=== PATIENT | female | born 1990 | race African-American/Black ===

== ENCOUNTER 2019-08-18 07:09 | Inpatient (IN) | payer OTHER ==
[2019-08-18 08:09] VITALS: BMI 34.4
[2019-08-18] MEDS ORDERED: ONDANSETRON 4 MG/2 ML VIAL IVPUSH PRN (08:57)
[2019-08-18] MEDS ORDERED: CITRIC ACID/SODIUM CITRATE 30 ML UNIT-DOSE CUP PO ONE (09:02)
[2019-08-18] MEDS ORDERED: OXYTOCIN 20 UNITS in 0.9% NS 20 UNIT/1,000 ML INFUS.BAG IV ONE ×2 (09:11→10:59)
[2019-08-18] MEDS ORDERED: morphine SULFATE/PF 0.5 MG/ML (2cc Syringe - QUVA) ONE (09:14)
[2019-08-18] MEDS ORDERED: ePHEDrine SULFATE 50 MG/1 ML AMPULE ONE (09:14)
[2019-08-18] MEDS ORDERED: ELECTROLYTE-148 SOLN 1,000 ML IV SCH (09:15)
--- NOTE | 2019-08-18 09:22 | HP ---
Past Medical History - Primary Care Physician PCP:: Reymundo Mckeon - Admission Chief Complaint: 28yo P2011 with at EGA 37w3d and prior IUFD admitted for repeat C/S. History of Present Illness: Prior C/S Prior IUFD at 38w6d History Source: Patient, Medical Record Limitations to Obtaining History: No Limitations - Past Medical History TELEPHONER: No: Alzheimer's, CVA, Dementia, Migraine, Multiple Sclerosis, Peripheral Neuropathy, Parkinson's, Seizure, Syncope, TIA, Vertigo, Other Cardiovascular: No: AFIB, Aneurysm, Aortic Insufficiency, Aortic Stenosis, CAD, CHF, Deep Vein Thrombosis, HTN, Hyperlipdemia, CO, Mitral Insufficiency, Mitral Stenosis, Murmur, Pulmonary Hypertension, Other Pulmonary: No: Asthma, Bronchitis, Cancer, COPD, O2 Dependent, Pneumonia, Previously Intubated, Pulmonary Embolus, Pulmonary Fibrosis, Sleep Apnea, Other Gastrointestinal: No: Ascites, Cancer, Constipation, Crohn's Disease, Diverticulitis, Diverticulosis, Esophageal Varices, Gastritis, GERD, GI Bleed, Hemorrhoids, Hiatal Hernia, Inflamatory Bowel Disease, Irritable Bowel Disease, Pancreatitis, Peptic Ulcer Disease, Ulcerative Colitis, Other Hepatobiliary: No: Cirrhosis, Cholelithiasis, Cholecystitis, Choledocholithiasis , Hepatitis A, Hepatitis B, Hepatitis C, Other Renal/: No: Renal Failure, Renal Inusuff, BPH, Cancer, Hematuria, Hemodialysis , Neurogenic Bladder, Renal Calculi, UTI, Other Reproductive: No: Ectopic , Endometriosis, Fibroids, PID, Polycystic Ovary Syndrome, Postmenopausal, Other ...: 5 ...Para: 2 ...Term: 2 ...: 0 ...Spon : 0 ...Induced : 2 ...Multiple Gestation: 0 ...LMP: 11/30/18 ... Weeks Gestation by Dates: 37.2 ...EDC by Dates: 09/06/19 ...EDC by Sono: 09/05/19 Heme/Onc: No: Anemia, B12 Deficiency, Bleeding Disorder, Cancer, Current Chemotherapy, Current Radiation Therapy, Hemochromatosis, Hypercoaguable State, Myeloproliferative Synd, Sickle Cell Disease, Sickle Cell Trait, Thrombocytopenia, Other Infectious Disease: No: AIDS, C-Diff, Herpes Zoster, HIV, MRSA, STD's, Tuberculosis, VREF, Other Psych: No: Addictions, Anxiety, Bipolar, Depression, Panic, Psychosis, Schizophrenia, Other Musculoskeletal: No: Bursitis, Chronic low back pain, Hemiparesis, Hemiplegia, Osteoarthritis, Paraplegia, Other Rheumatology: No: Fibromyalgia, Gout, Lupus, Rheumatoid Arthritis, Sarcoidosis, Vasculitis, Other ENT: No: Allergic Rhinitis, Sinusitis, Other Endocrine: No: Melvin's Disease, Shalom's Disease, Diabetes Insipidus, Diabetes Mellitus, Hyperparathyroidism, Hyperthyroidism, Hypothyroidism, Osteopenia, SIADH, Other Dermatology: No: Basal Cell, Cellulitis, Eczema, Melanoma, Psoriasis, Squamous Cell, Other - Past Surgical History Past Surgical History: Yes: Hx Myomectomy: No Hx Transabdominal Cerclage: No - Smoking History Smoking history: Never smoked Have you smoked in the past 12 months: No Aproximately how many cigarettes per day: 0 - Alcohol/Substance Use Hx Alcohol Use: No History of Substance Use: reports: None - Social History Usual Living Arrangement: Yes: With Significant Other, With Child ADL: Independent History of Recent Travel: No Home Medications - Allergies Allergies/Adverse Reactions: Allergies Allergy/AdvReac Type Severity Reaction Status Date / Time No Known Allergies Allergy Verified 02/11/16 14:24 - Home Medications Home Medications: Ambulatory Orders Vitamins 1 tab PO DAILY 02/11/16 Family Medical History Family Hx Gastrointestinal Disorder: Father Review of Systems - Review of Systems Constitutional: reports: No Symptoms Eyes: reports: No Symptoms HENT: reports: No Symptoms Neck: reports: No Symptoms Cardiovascular: reports: No Symptoms Respiratory: reports: No Symptoms Gastrointestinal: reports: No Symptoms Genitourinary: reports: No Symptoms Breasts: reports: No Symptoms Reported Musculoskeletal: reports: No Symptoms Integumentary: reports: No Symptoms Neurological: reports: No Symptoms Endocrine: reports: No Symptoms Hematology/Lymphatic: reports: No Symptoms Psychiatric: reports: No Symptoms Pain Intensity: 0 Physical Exam - Maternity Vital Signs: Vital Signs Temperature 98.4 F 08/18/19 07:50 Pulse Rate 81 08/18/19 07:50 Respiratory Rate 20 08/18/19 07:50 Blood Pressure 123/45 L 08/18/19 07:50 O2 Sat by Pulse Oximetry (%) Constitutional: Yes: Well Nourished, No Distress, Calm Eyes: Yes: WNL, Conjunctiva Clear HENT: Yes: WNL, Atraumatic, Normocephalic Neck: Yes: WNL, Supple, Trachea Midline Cardiovascular: Yes: WNL, Regular Rate and Rhythm Lungs: Clear to auscultation, Normal air movement Breast(s): Yes: WNL - Abdominal Exam/OB Fundal Height: 38 Number of Fetuses: Single Presentation: Vertex Contractions: No Heart Rate (range): 130 Heart Rate Location: Midline Category: I Accelerations: Uniform Decelerations: None - Vaginal Exam/OB Vaginal Bleediing: No Speculum Exam: No Amniotic Membrane Status: Intact Presentation: Vertex/Position - Physical Exam Musculoskeletal: Yes: WNL Extremities: Yes: WNL Edema: No Integumentary: Yes: WNL Deep Tendon Reflex Grade: Normal +2 ...Motor Strength: WNL Psychiatric: Yes: WNL, Alert, Oriented Hemorrhage Risk Assessment - Risk Factors Medium Risk Factors: Yes: Prior , uterine surgery,or multiple laparotomies High Risk Factors: Yes: None Risk Score: 1 Risk Level: Medium Risk Imaging - Results Ultrasound: Report Reviewed Assessment/Plan 28yo P2011 with at EGA 37w3d and prior IUFD admitted for repeat C/S. We discussed the risks and benefits of C/S at length, including but not limited to scarring, pain, bleeding, infection, injury to underlying organs and structures, need for additional surgery to repair/treat any problems or complications, complications/injuries, etc. The pt verbalized her understanding and requested to proceed with surgery. The pt is aware that all surgeries have risks and no guarantees can be provided.
[2019-08-18] MEDS ORDERED: ceFAZolin SODIUM 1 GM VIAL ONE (09:29)
[2019-08-18] MEDS ORDERED: WITCH HAZEL 50% (TUCKS) 40 PAD/JAR PAD TP PRN (10:26)
[2019-08-18] MEDS ORDERED: BISACODYL 10 MG SUPP.RECT RC PRN (10:26)
[2019-08-18] MEDS ORDERED: BENZOCAINE 28 GM HEMORRHOIDAL OINTMENT TP PRN (10:26)
[2019-08-18] MEDS ORDERED: BENZOCAINE 20% 57 GM BOTTLE TP PRN (10:26)
[2019-08-18] MEDS ORDERED: METHYLERGONOVINE MALEATE 0.2 MG/1 ML AMP IM PRN (10:26)
--- NOTE | 2019-08-18 10:49 | OP ---
Operative Note - Note: Operative Date: 08/18/19 Pre-Operative Diagnosis: at EGA 37w3d. Prior C/S. Prior IUFD at term Operation: Repeat LT C/S Findings: Live baby boy in vtx presentation, no meconium in amniotic fluids, 8-9, normal ut/tubes/ovaries. Post-Operative Diagnosis: Same as Pre-op Surgeon: Reymundo Mckeon Indirect Sales Exec: Flower Macias Anesthesiologist/SENIOR BENEFITS SPECIALIST: Tarik Alves Anesthesia: Spinal Specimens Removed: Placenta Estimated Blood Loss (mls): 700 Drains & Tubes with Location: Pagan cath Drains, Volume Out (mls): 350 Blood Volume Replaced (mls): 0 Fluid Volume Replaced (mls): 1,900 Operative Report Dictated: Yes
[2019-08-18] MEDS: OXYTOCIN 20 UNITS in 0.9% NS 20 UNIT/1,000 ML INFUS.BAG IV SCH (18:39)
[2019-08-19] MEDS: OXYTOCIN 20 UNITS in 0.9% NS 20 UNIT/1,000 ML INFUS.BAG IV SCH (02:14)
[2019-08-19] MEDS: ACETAMINOPHEN 325 MG TABLET (FP) PO PRN ×3 (06:28→21:17)
[2019-08-19] MEDS: IBUPROFEN 600 MG TABLET (FP) PO PRN ×3 (06:28→21:18)
[2019-08-19 08:04] LABS: BASO % 0.3 % (0-2.0); EOS % 0.6 % (0-4.5); HEMATOCRIT 31.5 % (32.4-45.2); HEMOGLOBIN 10.6 GM/dL (10.7-15.3); LYMPH % 11.1 % (8-40); MCH 31.2 pg (25.7-33.7); MCHC 33.7 g/dl (32.0-36.0); MEAN CELL VOLUME 92.8 fl (80-96); MEAN PLT VOLUME 10.1 fl (7.5-11.1); MONO % 6.4 % (3.8-10.2); NEUT % 81.6 % (42.8-82.8); PLATELET COUNT 173 K/MM3 (134-434); WHITE BLOOD COUNT 9.4 K/mm3 (4.0-10.0)
[2019-08-19] MEDS ORDERED: oxyCODONE HCL 5 MG TABLET PO PRN (08:58)
[2019-08-19] MEDS ORDERED: IBUPROFEN 600 MG TABLET (FP) PO PRN (08:58)
--- NOTE | 2019-08-19 09:10 | PN ---
Post Progress Note - Subjective Subjective: Patient without acute complaints. Reports tolerating oral intake without nausea or vomiting. Ambulating without dizziness. Denies fevers or chills. Pain well controlled with oral pain medication. Pumping/breast feeding without issue. No flatus, no BM yet. Post Day: 1 Type of Delivery: Repeat C/S Vital Signs: Vital Signs Temperature 99.0 F 08/19/19 06:00 Pulse Rate 86 08/19/19 06:00 Respiratory Rate 18 08/19/19 06:00 Blood Pressure 119/66 08/19/19 06:00 O2 Sat by Pulse Oximetry (%) 100 08/18/19 11:40 Breast Exam: Yes: Soft Uterus: Yes: Fundus Firm, Fundus below umbilicus, Non-tender Incision: Yes: Dressing dry and intact Abdomen/GI: Yes: Abdomen soft, Tolerating PO Lochia: Yes: Rubra Lochia, amount: Small Extremities: Yes: Calves non-tender Perineum: Yes: Intact Activity: Ambulating - Labs Labs: CBC WBC 9.4 K/mm3 (4.0-10.0) 08/19/19 06:40 RBC 3.40 M/mm3 (3.60-5.2) L 08/19/19 06:40 Hgb 10.6 GM/dL (10.7-15.3) L 08/19/19 06:40 Hct 31.5 % (32.4-45.2) L 08/19/19 06:40 MCV 92.8 fl (80-96) 08/19/19 06:40 MCH 31.2 pg (25.7-33.7) 08/19/19 06:40 MCHC 33.7 g/dl (32.0-36.0) 08/19/19 06:40 RDW 15.0 % (11.6-15.6) 08/19/19 06:40 Plt Count 173 K/MM3 (134-434) 08/19/19 06:40 MPV 10.1 fl (7.5-11.1) 08/19/19 06:40 Absolute Neuts (auto) 7.7 K/mm3 (1.5-8.0) 08/19/19 06:40 Neutrophils % 81.6 % (42.8-82.8) 08/19/19 06:40 Lymphocytes % 11.1 % (8-40) D 08/19/19 06:40 Monocytes % 6.4 % (3.8-10.2) 08/19/19 06:40 Eosinophils % 0.6 % (0-4.5) 08/19/19 06:40 Basophils % 0.3 % (0-2.0) 08/19/19 06:40 Nucleated RBC % 0 % (0-0) 08/19/19 06:40 Assessment/Plan 28yo P2 s/p repeat LT C/S, doing well stable, afebrile. The pt is asymptomatic for s/sxs of anemia. care instructions reviewed. Continue routine postop care. Ambulation encouraged.
[2019-08-19] MEDS: ENOXAPARIN NA (PORCINE) 40 MG/0.4 ML DISP.SYRIN SQ SCH (09:44)
[2019-08-19] MEDS: PRENATAL VITAMINS W/ FOLIC ACID TABLET (FP) PO SCH (10:05)
--- NOTE | 2019-08-19 15:14 | PN ---
Progress Note (short form) - Note Progress Note: Anesthesia Post Op Note Pt s/p spinal for c/sect Pt awake alert sitting in bed Pt denies n/v, no puritis, no h/a Pt reports ambulating well and no urinary retention good pain management VSS no apparent anesthesia complications Amparo Montejo.
[2019-08-19] MEDS ORDERED: SENNOSIDES/DOCUSATE COMBO (SENNA PLUS) TABLET (UD) PO PRN (22:00)
--- NOTE | 2019-08-20 08:48 | PN ---
Post Progress Note - Subjective Subjective: Patient without acute complaints. Reports tolerating oral intake without nausea or vomiting. Ambulating without dizziness. Denies fevers or chills. Pain well controlled with oral pain medication. without difficulty. Passing flatus. Post Day: 2 Type of Delivery: Repeat C/S Vital Signs: Vital Signs Temperature 99.8 F H 08/19/19 22:00 Pulse Rate 100 H 08/19/19 22:00 Respiratory Rate 18 08/19/19 22:00 Blood Pressure 121/70 08/19/19 22:00 O2 Sat by Pulse Oximetry (%) 100 08/18/19 11:40 Breast Exam: Yes: Soft Uterus: Yes: Fundus Firm Incision: Yes: Dressing dry and intact Abdomen/GI: Yes: Abdomen soft Lochia: Yes: Rubra Lochia, amount: Small Extremities: Yes: Calves non-tender Activity: Ambulating - Labs Labs: CBC WBC 9.4 K/mm3 (4.0-10.0) 08/19/19 06:40 RBC 3.40 M/mm3 (3.60-5.2) L 08/19/19 06:40 Hgb 10.6 GM/dL (10.7-15.3) L 08/19/19 06:40 Hct 31.5 % (32.4-45.2) L 08/19/19 06:40 MCV 92.8 fl (80-96) 08/19/19 06:40 MCH 31.2 pg (25.7-33.7) 08/19/19 06:40 MCHC 33.7 g/dl (32.0-36.0) 08/19/19 06:40 RDW 15.0 % (11.6-15.6) 08/19/19 06:40 Plt Count 173 K/MM3 (134-434) 08/19/19 06:40 MPV 10.1 fl (7.5-11.1) 08/19/19 06:40 Absolute Neuts (auto) 7.7 K/mm3 (1.5-8.0) 08/19/19 06:40 Neutrophils % 81.6 % (42.8-82.8) 08/19/19 06:40 Lymphocytes % 11.1 % (8-40) D 08/19/19 06:40 Monocytes % 6.4 % (3.8-10.2) 08/19/19 06:40 Eosinophils % 0.6 % (0-4.5) 08/19/19 06:40 Basophils % 0.3 % (0-2.0) 08/19/19 06:40 Nucleated RBC % 0 % (0-0) 08/19/19 06:40 Assessment/Plan 28yo s/p Repeat c/section POD # 2 Doing well, Afebrile VSS Rh positive no need for RhoGam Continue routine care Encourage ambulation
[2019-08-20] MEDS: ENOXAPARIN NA (PORCINE) 40 MG/0.4 ML DISP.SYRIN SQ SCH (09:32)
[2019-08-20] MEDS: PRENATAL VITAMINS W/ FOLIC ACID TABLET (FP) PO SCH (09:33)
[2019-08-20] MEDS: ACETAMINOPHEN 325 MG TABLET (FP) PO PRN (21:28)
[2019-08-20] MEDS: IBUPROFEN 600 MG TABLET (FP) PO PRN (21:29)
--- NOTE | 2019-08-21 07:38 | PN ---
Post Progress Note - Subjective Subjective: Patient without acute complaints. Reports tolerating oral intake without nausea or vomiting. Ambulating without dizziness. Denies fevers or chills. Pain well controlled with oral pain medication. without difficulty. Passing flatus. Post Day: 3 Type of Delivery: Repeat C/S Vital Signs: Vital Signs Temperature 99.1 F 08/20/19 22:00 Pulse Rate 82 08/20/19 22:00 Respiratory Rate 18 08/20/19 22:00 Blood Pressure 114/71 08/20/19 22:00 O2 Sat by Pulse Oximetry (%) 100 08/18/19 11:40 Breast Exam: Yes: Soft Uterus: Yes: Fundus Firm, Fundus below umbilicus Incision: Yes: Sutures intact. No: Redness, Oozing Abdomen/GI: Yes: Abdomen soft, Tender (mild incisional), Passing flatus, Tolerating PO. No: Abdominal Distention Lochia: Yes: Rubra Lochia, amount: Small Extremities: Yes: Calves non-tender, Edema (trace) Activity: Ambulating - Labs Labs: CBC WBC 9.4 K/mm3 (4.0-10.0) 08/19/19 06:40 RBC 3.40 M/mm3 (3.60-5.2) L 08/19/19 06:40 Hgb 10.6 GM/dL (10.7-15.3) L 08/19/19 06:40 Hct 31.5 % (32.4-45.2) L 08/19/19 06:40 MCV 92.8 fl (80-96) 08/19/19 06:40 MCH 31.2 pg (25.7-33.7) 08/19/19 06:40 MCHC 33.7 g/dl (32.0-36.0) 08/19/19 06:40 RDW 15.0 % (11.6-15.6) 08/19/19 06:40 Plt Count 173 K/MM3 (134-434) 08/19/19 06:40 MPV 10.1 fl (7.5-11.1) 08/19/19 06:40 Absolute Neuts (auto) 7.7 K/mm3 (1.5-8.0) 08/19/19 06:40 Neutrophils % 81.6 % (42.8-82.8) 08/19/19 06:40 Lymphocytes % 11.1 % (8-40) D 08/19/19 06:40 Monocytes % 6.4 % (3.8-10.2) 08/19/19 06:40 Eosinophils % 0.6 % (0-4.5) 08/19/19 06:40 Basophils % 0.3 % (0-2.0) 08/19/19 06:40 Nucleated RBC % 0 % (0-0) 08/19/19 06:40 Assessment/Plan 28 yo POD # 3 s/p repeat delivery, afebrile, vital signs stable, doing well 1. Patient stable for discharge home today. 2. Patient encouraged to contact MD for: - Severe pain not controlled by oral pain medication - Fevers or chills - Nausea or vomiting, intolerance of oral intake - Incision redness, tenderness or discharge 3. Patient to follow up in office in 1-2 weeks for incision check, 4-6 weeks for visit
[2019-08-21] MEDS: ENOXAPARIN NA (PORCINE) 40 MG/0.4 ML DISP.SYRIN SQ SCH (10:14)
[2019-08-21] MEDS: PRENATAL VITAMINS W/ FOLIC ACID TABLET (FP) PO SCH (10:14)
[2019-08-21] MEDS: IBUPROFEN 600 MG TABLET (FP) PO PRN (18:36)
[2019-08-21] MEDS: ACETAMINOPHEN 325 MG TABLET (FP) PO PRN (18:36)
[2019-08-21 23:39] VITALS: BP 122/76; PULSE 80; TEMP 98
[2019-08-22] MEDS: IBUPROFEN 600 MG TABLET (FP) PO PRN (06:19)
[2019-08-22] MEDS: ACETAMINOPHEN 325 MG TABLET (FP) PO PRN (06:20)
--- NOTE | 2019-08-27 16:28 | PATH ---
Surgical Pathology Report Patient Name: MOHINDER RANDOLPH [facility]. Rec. #: [id number] /Age/Gender: 1990 (Age: 28) / F Account: [id number] Location: [facility] OBS/CORPORATE WELLNESS COORDINATOR Taken: 08/18/2019 Received: 08/19/2019 Reported: 08/27/2019 Physicians: Reymundo Mckeon M.D. Specimen(s) Received PLACENTA Clinical History at 37 weeks 3 days Final Diagnosis PLACENTA, SECTION: 451 G THIRD TRIMESTER PLACENTA WITH TRIVASCULAR UMBILICAL CORD AND UNREMARKABLE PLACENTAL MEMBRANES. Electronically Signed Viviana Alonzo M.D. Gross Description The specimen is received fresh labeled placenta and is a 451 gram, 19.5 x 13.0 x 3.0 cm. placenta with attached membranes and umbilical cord. The attached membranes are robles, translucent with focal opacities and insert marginally. The umbilical cord measures 16 cm. in length and averages 1 cm. in diameter. The cord inserts at the margin. No true knots or strictures are identified. Cut surface of the umbilical cord reveals 3 vessels. The surface is espinoza-blue with minimal fibrin deposition and appropriate caliber vessels. The maternal surface is red-brown, markedly fragmented and disrupted. Sectioning reveals red-brown, spongy parenchyma. No lesions are identified. Boss Miner sections are submitted in three cassettes as follows: 1- membrane rolls and umbilical cord; 2-3- full thickness sections of placenta. /08/25/2019 [facility]08/25/2019
== END 2019-08-22 08:40 | disposition home or self-care (01) | DRG 540 ==
LOC: JLDR 07:09 → J3W 14:00 → UNDODISIN 08-21 10:45
PROVIDERS: ADMIT Obstetrics & Gynecology; ATTEND Obstetrics & Gynecology
PROC: 10D00Z1 Extraction of Products of Conception, Low, Open Approach (ICD-10-PCS; principal; 2019-08-18)
DX: O34.219 Maternal care for unspecified type scar from previous cesarean delivery (principal); Z3A.37 37 weeks gestation of pregnancy; Z37.0 Single live birth
CPT/HCPCS: 36415; 36600; 82803; 85025; 88307-TC

== ENCOUNTER 2019-09-29 15:55 | Inpatient (IN) | payer OTHER ==
--- NOTE | 2019-09-29 16:07 | PDOC ---
Rapid Medical Evaluation Chief Complaint: Blood Pressure Problem Time Seen by Provider: 09/29/19 16:04 Medical Evaluation: Allergies Allergy/AdvReac Type Severity Reaction Status Date / Time No Known Allergies Allergy Verified 02/11/16 14:24 09/29/19 16:04 This patient received a in-person evaluation in triage cc/HPI: elevated blood pressure with headaches. Sent ob for further evaluation. , delivered 08/18/19 PE: NAD unlabored breathing no pedal edema orders: urinalysis This patient will proceed to ED for further evaluation
[2019-09-29 16:08] VITALS: BMI 31.9
--- NOTE | 2019-09-29 16:14 | PDOC ---
History of Present Illness - General Chief Complaint: Blood Pressure Problem Stated Complaint: HYPERTENSION Time Seen by Provider: 09/29/19 16:04 History Source: Patient - History of Present Illness Timing/Duration: other Past History - Past Medical History Allergies/Adverse Reactions: Allergies Allergy/AdvReac Type Severity Reaction Status Date / Time No Known Allergies Allergy Verified 09/29/19 17:22 Home Medications: Ambulatory Orders NK [No Known Home Medication] 09/29/19 Asthma: No Cancer: No Cardiac Disorders: No COPD: No Diabetes: No HTN: No Seizures: No Thyroid Disease: No - Immunization History Immunization Up to Date: Yes - Psycho Social/Smoking Cessation Hx Smoking Status: No Smoking History: Never smoked Have you smoked in the past 12 months: No Number of Cigarettes Smoked Daily: 0 Hx Alcohol Use: No Drug/Substance Use Hx: No Substance Use Type: None Hx Substance Use Treatment: No Review of Systems - Review of Systems Constitutional: No: Chills, Fever Respiratory: No: Shortness of Breath Cardiac (ROS): No: Chest Pain, Lightheadedness, Palpitations ABD/GI: No: Nausea, Vomiting, Abdominal cramping : No: Dysuria, Hematuria Neurological: Yes: Headache. No: Numbness, Seizure, Tingling, Weakness, Dizziness *Physical Exam - Vital Signs Last Vital Signs Temp Pulse Resp BP Pulse Ox 97 F L 59 L 17 149/76 98 09/29/19 16:05 09/29/19 16:05 09/29/19 16:05 09/29/19 16:05 09/29/19 16:05 - Physical Exam General Appearance: Yes: Appropriately Dressed. No: Apparent Distress HEENT: positive: Normal Voice Neck: positive: Supple Respiratory/Chest: positive: Lungs Clear, Normal Breath Sounds. negative: Respiratory Distress Cardiovascular: positive: Regular Rate, S1, S2 Gastrointestinal/Abdominal: positive: Soft. negative: Tender Musculoskeletal: negative: CVA Tenderness Integumentary: positive: Dry, Warm Neurologic: positive: Fully Oriented, Alert, Normal Mood/Affect, Motor Strength 5/5 ED Treatment Course - LABORATORY CBC & Chemistry Diagram: 09/29/19 17:05 09/29/19 17:00 Medical Decision Making - Medical Decision Making 09/29/19 16:14 28-year-old female, no sig pmhx, , s/p over a month ago at [facility] with Dr. Mckeon, seen at post-op visit today and found to have elevated BP in office and sent to ED to rule out pre-eclampsia. Patient states she had vague headache 2 days ago that has since resolved. Currently only has mild bodyaches. No dizziness, blurry vision, seizure, nausea, vomiting, LE swelling, abd pain, CP, SOB, vaginal bleed, dysuria, fever or chills. Per patient, had no complications during and no history of pre-eclampsia or HTN see exam Concern for pre-eclampsia BP at triage 149/76, well emmett w/ unremarkable exam otherwise -labs/ua -c/w [facility] 09/29/19 17:33 BP now 180/108 at bedside. Patient reports headache has since returned. ED attending called to bedside. Mag sulfate and IV fluids in progress. Dr. Mckeon of [facility] paged 09/29/19 17:[address] Mckeon of [facility] who recommends dose of hydralazine for BP control and can switch to procardia for further management. At this time mag sulfate loading dose is in progress, then will start infusion w/ continued reassessment for magnesium toxicity by checking DTRs and mag level every 1-2 hours as discussed with Dr. Aldridge. As discussed with Dr. Mckeon, will consult with hardware manager 09/29/19 18:[address] Alva from ICU who state he will come down to ER to evaluate patient. Information also micro-blogged to MD and hospitalist as requested 09/29/19 18:[address] Moreno who agrees with ICU admission. 09/29/19 18:47 Repeat blood pressure 143/92. Per discussion with Dr Aldridge, will hold hydralazine at this time. Mag currently in progress 09/29/19 19:00 Pt signed out to CHARMAINE Hannah pending continued assessment while on mag infusion Discharge - Discharge Information Problems reviewed: Yes Clinical Impression/Diagnosis: Elevated blood pressure reading Headache Qualifiers: Headache type: unspecified Headache chronicity pattern: acute headache Intractability: not intractable Qualified Code(s): R51 - Headache Condition: Fair - Admission Yes - Follow up/Referral - Patient Discharge Instructions - Post Discharge Activity
[2019-09-29 16:54] LABS: URINE APPEARANCE CLEAR; URINE BILIRUBIN NEGATIVE (NEGATIVE); URINE COLOR YELLOW; URINE GLUCOSE (UA) NEGATIVE (NEGATIVE); URINE KETONE NEGATIVE (NEGATIVE); URINE LEUK ESTERASE NEGATIVE (NEGATIVE); URINE NITRITE NEGATIVE (NEGATIVE); URINE PROTEIN NEGATIVE (NEGATIVE); URINE UROBILINOGEN 0.2 mg/dL (0.2-1.0)
[2019-09-29 17:16] LABS: BASO % 0.8 % (0-2.0); EOS % 3.2 % (0-4.5); HEMATOCRIT 39.2 % (32.4-45.2); HEMOGLOBIN 13.1 GM/dL (10.7-15.3); LYMPH % 35.8 % (8-40); MCHC 33.4 g/dl (32.0-36.0); MEAN CELL VOLUME 89.8 fl (80-96); MONO % 5.5 % (3.8-10.2); NEUT % 54.7 % (42.8-82.8); PLATELET COUNT 178 K/MM3 (134-434); RBC 4.36 M/mm3 (3.60-5.2); RDW 15.2 % (11.6-15.6); WHITE BLOOD COUNT 3.9 K/mm3 (4.0-10.0)
[2019-09-29] MEDS ORDERED: SODIUM CHLORIDE 1,000 ML IV STA (17:30)
[2019-09-29] MEDS ORDERED: MAGNESIUM SULF 50% (8.12 MEQ/2 ML-1 GM VIAL) IVPB ONE (17:31)
[2019-09-29] MEDS ORDERED: MAGNESIUM SULF 50% (8.12 MEQ/2 ML-1 GM VIAL) ONE (17:39)
[2019-09-29 17:45] LABS: ALBUMIN 3.4 g/dl (3.4-5.0); ALK PHOS 80 U/L (45-117); ANION GAP 6 MMOL/L (8-16); BILIRUBIN,TOTAL 0.2 mg/dL (0.2-1); BLOOD UREA NITROGEN 12.8 mg/dL (7-18); CALCIUM 8.9 mg/dL (8.5-10.1); CHLORIDE 107 mmol/L (98-107); CO2 30 mmol/L (21-32); CREATININE 0.9 mg/dL (0.55-1.3); GLUCOSE,RANDOM 90 mg/dL (74-106); POTASSIUM 3.9 mmol/L (3.5-5.1); SGOT/AST 11 U/L (15-37); SGPT/ALT 19 U/L (13-61); SODIUM 143 mmol/L (136-145); TOT PROT 7.1 g/dl (6.4-8.2)
[2019-09-29] MEDS ORDERED: SODIUM CHLORIDE 1,000 ML IV SCH (17:45)
[2019-09-29] MEDS ORDERED: hydrALAZINE HCL 20 MG/ML VIAL IVPUSH ONE (17:50)
--- NOTE | 2019-09-29 18:02 | PDOC ---
Attending Attestation - Resident Resident Name: Chilean,LindaGregory - HPI HPI: 09/29/19 17:55 Pt presents to the ED after sent in from primary OB for headache and hypertension. Complaining of "throbbing" headache in the ED. BP 180/100s. No history of HTN during or pre-ecclampsia. Denies swelling or visual complaints. - Physicial Exam PE: 09/29/19 17:57 Agree with resident exam. Patient is alert and oriented x 3 and in no acute distress. Lungs are clear. Heart regular rate and rhythm. Abdomen soft, non tender, non distended without guarding or rebound. - Critical Care Time Total Critical Care Time: 30 Critical Care Statement: The care of this patient involved high complexity decision making to prevent further life threatening deterioration of the patient 's condition and/or to evaluate & treat vital organ system(s) failure or risk of failure. - Medical Decision Making 09/29/19 18:02 Pt presents to the ED complaining of headache and high blood pressure in [facility] office. patient is extremely hypertensive in ED. Case discussed with Dr. Mckeon. Will start large dose mag and IV hydralizine, admit to ICU for continued monitoring.
[2019-09-29] MEDS ORDERED: hydrALAZINE HCL 20 MG/ML VIAL ONE (18:15)
[2019-09-29] MEDS ORDERED: ACETAMINOPHEN 325 MG TABLET (FP) PO PRN (18:42)
--- NOTE | 2019-09-29 18:44 | HP ---
Admitting History and Physical - Primary Care Physician PCP: Katherine Moreno - Admission History of Present Illness: 28-year-old female, no sig pmhx, , s/p over a month ago at [facility] with Dr. Mckeon, seen at post-op visit today and found to have elevated BP in office and sent to ED to rule out pre-eclampsia. Patient states she had vague headache 2 days ago that has since resolved. Currently only has mild bodyaches. No dizziness, blurry vision, seizure, nausea, vomiting, LE swelling, abd pain, CP, SOB, vaginal bleed, dysuria, fever or chills. Per patient, had no complications during and no history of pre-eclampsia or HTN - Past Surgical History Past Surgical History: Yes: - Smoking History Smoking history: Never smoked Have you smoked in the past 12 months: No Aproximately how many cigarettes per day: 0 - Alcohol/Substance Use Hx Alcohol Use: No History of Substance Use: reports: None - Social History ADL: Independent History of Recent Travel: No Home Medications - Allergies Allergies/Adverse Reactions: Allergies Allergy/AdvReac Type Severity Reaction Status Date / Time No Known Allergies Allergy Verified 09/29/19 17:22 - Home Medications Home Medications: Ambulatory Orders Amlodipine Besylate [Norvasc -] 5 mg PO DAILY #30 tablet 09/30/19 Physical Examination Vital Signs: Vital Signs Temperature 97.8 F 09/29/19 16:45 Pulse Rate 60 09/29/19 18:00 Respiratory Rate 18 09/29/19 18:00 Blood Pressure 179/96 H 09/29/19 18:00 O2 Sat by Pulse Oximetry (%) 100 09/29/19 18:00 Constitutional: Yes: No Distress HENT: Yes: Atraumatic Neck: Yes: Supple Cardiovascular: Yes: Bruit Respiratory: Yes: CTA Bilaterally Gastrointestinal: Yes: Normal Bowel Sounds Extremities: Yes: WNL Edema: No Neurological: Yes: Alert, Oriented Labs: CBC, BMP 09/29/19 17:05 09/29/19 17:00 Problem List - Problems (1) Headache Code(s): R51 - HEADACHE Qualifiers: Headache type: unspecified Headache chronicity pattern: acute headache Intractability: not intractable Qualified Code(s): R51 - Headache (2) S/P repeat low transverse Code(s): Z98.891 - HISTORY OF UTERINE SCAR FROM PREVIOUS SURGERY (3) HTN (hypertension) Code(s): I10 - ESSENTIAL (PRIMARY) HYPERTENSION Assessment/Plan Laboratory Tests 09/29/19 09/29/19 09/29/19 16:29 17:00 17:05 WBC 3.9 L RBC 4.36 Hgb 13.1 Hct 39.2 D MCV 89.8 MCH 30.0 MCHC 33.4 RDW 15.2 Plt Count 178 MPV 10.0 Absolute Neuts (auto) 2.1 Neutrophils % 54.7 D Lymphocytes % 35.8 D Monocytes % 5.5 Eosinophils % 3.2 D Basophils % 0.8 Nucleated RBC % 0 Sodium 143 Potassium 3.9 Chloride 107 Carbon Dioxide 30 Anion Gap 6 L BUN 12.8 Creatinine 0.9 Est GFR (CKD-EPI)AfAm 100.14 Est GFR (CKD-EPI)NonAf 86.41 Random Glucose 90 Calcium 8.9 Total Bilirubin 0.2 AST 11 L ALT 19 Alkaline Phosphatase 80 Total Protein 7.1 Albumin 3.4 Urine Color Yellow Urine Appearance Clear Urine pH 8.0 D Ur Specific Gifford 1.014 Urine Protein Negative Urine Glucose (UA) Negative Urine Ketones Negative Urine Blood Negative Urine Nitrite Negative Urine Bilirubin Negative Urine Urobilinogen 0.2 Ur Leukocyte Esterase Negative Active Medications Generic Name Dose Route Start Last Admin Trade Name Freq PRN Reason Stop Dose Admin Acetaminophen 650 mg 09/29/19 18:42 Tylenol - PO Q6H PRN FEVER Heparin Sodium (Porcine) 5,000 unit 09/29/19 22:00 Heparin - SQ BID CHARLES Sodium Chloride 1,000 mls @ 80 mls/hr 09/29/19 17:45 09/29/19 18:11 Normal Saline - IV 80 mls/hr ASDIR CHARLES Administration
[2019-09-29] MEDS ORDERED: METOCLOPRAMIDE HCL INJECTION 10 MG/2 ML VIAL IVPB ONE (18:47)
[2019-09-29] MEDS ORDERED: METOCLOPRAMIDE HCL INJECTION 10 MG/2 ML VIAL ONE (19:13)
--- NOTE | 2019-09-29 19:42 | CONSULT ---
Consultation: REQUESTING PROVIDER: CONSULT REQUEST: We have been asked to medically evaluate this patient for hypertensive emergency . HISTORY OF PRESENT ILLNESS: 28y/oF 6 weeks s/p , presented to the ER with headache and blood pressure of 180/108 in PCP's office. She has had 2 days of intermittent headache 10/10 and throbbing in nature. Headache currently at 5/ 10 at time of evalutation.located at the front of her head and sometimes in the back. sometimes relieved by rest/sleep. denied any exacerbating factors. She denies any blurry vision, nausea, vomiting, fevers, chills, neck stiffness, previous hx of hypertension during or before , dysuria, hematuria. ER course -BP on arrival was 149/76 when triaged -given MgSO4 and 10mg IV dose of hydralazine -IV fluids (normal saline 1L) - IV reglan for headache -BP at time of this eval. 133/88 PSH x2 PMH: no significant past medical hx FHx: mother has diabetes Medications: none Social Hx: denies smoking,drug use. occasional drinker Allergies: NKDA PCP: Dr. Pitts OB: Dr. Mckeon REVIEW OF SYSTEMS: CONSTITUTIONAL: Absent: fever, chills, diaphoresis, generalized weakness, malaise, loss of appetite, weight change HEENT: Absent: rhinorrhea, nasal congestion, throat pain, throat swelling, difficulty swallowing, mouth swelling, ear pain, eye pain, visual changes CARDIOVASCULAR: Absent: chest pain, syncope, palpitations, irregular heart rate, lightheadedness , peripheral edema RESPIRATORY: Absent: cough, shortness of breath, dyspnea with exertion, orthopnea, wheezing, stridor, hemoptysis GASTROINTESTINAL: Absent: abdominal pain, abdominal distension, nausea, vomiting, diarrhea, constipation, melena, present: BRBPR x 1 today. no other events on subsequent bowel movements. hx of hemorrhoids GENITOURINARY: Absent: dysuria, frequency, urgency, hesitancy, hematuria, flank pain, genital pain MUSCULOSKELETAL: Absent: myalgia, arthralgia, joint swelling, back pain, neck pain SKIN: Absent: rash, itching, pallor HEMATOLOGIC/IMMUNOLOGIC: Absent: easy bleeding, easy bruising, lymphadenopathy, frequent infections ENDOCRINE: Absent: unexplained weight gain, unexplained weight loss, heat intolerance, cold intolerance NEUROLOGIC: Absent: headache, focal weakness or paresthesias, dizziness, unsteady gait, seizure, mental status changes, bladder or bowel incontinence PSYCHIATRIC: Absent: anxiety, depression, suicidal or homicidal ideation, hallucinations. PHYSICAL EXAMINATION Vital Signs - 24 hr 09/29/19 09/29/19 09/29/19 16:05 16:45 17:00 Temperature 97 F L 97.8 F Pulse Rate 59 L Pulse Rate [ 51 L Apical] Respiratory 17 16 Rate Blood Pressure 149/76 Blood Pressure 180/111 H [Left Arm] O2 Sat by Pulse 98 100 100 Oximetry (%) 09/29/19 09/29/19 09/29/19 18:00 18:30 19:07 Temperature Pulse Rate Pulse Rate [ 60 60 70 Apical] Respiratory 18 116 H 18 Rate Blood Pressure Blood Pressure 179/96 H 143/92 133/88 [Left Arm] O2 Sat by Pulse 100 100 100 Oximetry (%) GENERAL: Awake, alert, and fully oriented, in no acute distress. HEAD: Normal with no signs of trauma. EYES: Pupils equal, round and reactive to light, extraocular movements intact, sclera anicteric, conjunctiva clear. No lid lag. EARS, NOSE, THROAT: Ears normal, nares patent, oropharynx clear without exudates. Moist mucous membranes. NECK: Normal range of motion, supple without lymphadenopathy, JVD, or masses. LUNGS: Breath sounds equal, clear to auscultation bilaterally. No wheezes, and no crackles. No accessory muscle use. HEART: Regular rate and rhythm, normal S1 and S2 without murmur, rub or gallop. ABDOMEN: Soft, nontender, not distended, normoactive bowel sounds, no guarding, no rebound, no masses. No hepatomegaly or splenomegaly. MUSCULOSKELETAL: Normal range of motion at all joints. No bony deformities or tenderness. No CVA tenderness. UPPER EXTREMITIES: 2+ pulses, warm, well-perfused. No cyanosis. No clubbing. Cap refill <2 seconds. No peripheral edema. LOWER EXTREMITIES: 2+ pulses, warm, well-perfused. No calf tenderness. No peripheral edema. NEUROLOGICAL: Cranial nerves II-XII intact. Normal speech. PSYCHIATRIC: Cooperative. Good eye contact. Appropriate mood and affect. SKIN: Warm, dry, normal turgor, no rashes or lesions noted. Laboratory Results - last 24 hr 09/29/19 09/29/19 09/29/19 16:29 17:00 17:05 WBC 3.9 L RBC 4.36 Hgb 13.1 Hct 39.2 D MCV 89.8 MCH 30.0 MCHC 33.4 RDW 15.2 Plt Count 178 MPV 10.0 Absolute Neuts (auto) 2.1 Neutrophils % 54.7 D Lymphocytes % 35.8 D Monocytes % 5.5 Eosinophils % 3.2 D Basophils % 0.8 Nucleated RBC % 0 Sodium 143 Potassium 3.9 Chloride 107 Carbon Dioxide 30 Anion Gap 6 L BUN 12.8 Creatinine 0.9 Est GFR (CKD-EPI)AfAm 100.14 Est GFR (CKD-EPI)NonAf 86.41 Random Glucose 90 Calcium 8.9 Total Bilirubin 0.2 AST 11 L ALT 19 Alkaline Phosphatase 80 Total Protein 7.1 Albumin 3.4 Urine Color Yellow Urine Appearance Clear Urine pH 8.0 D Ur Specific [place] 1.014 Urine Protein Negative Urine Glucose (UA) Negative Urine Ketones Negative Urine Blood Negative Urine Nitrite Negative Urine Bilirubin Negative Urine Urobilinogen 0.2 Ur Leukocyte Esterase Negative Active Medications Generic Name Dose Route Start Last Admin Trade Name Freq PRN Reason Stop Dose Admin Acetaminophen 650 mg 09/29/19 18:42 Tylenol - PO Q6H PRN FEVER Chlorhexidine Gluconate 1 applic 09/29/19 22:00 Hibiclens For Decolonization - TP HS CHARLES Heparin Sodium (Porcine) 5,000 unit 09/29/19 22:00 Heparin - SQ BID CHARLES Sodium Chloride 1,000 mls @ 80 mls/hr 09/29/19 17:45 09/29/19 18:11 Normal Saline - IV 80 mls/hr ASDIR CHARLES Administration Mupirocin 1 applic 09/29/19 22:00 Bactroban Ointment (For Decolonization) - NS 10/04/19 21:59 BID CHARLES ASSESSMENT/PLAN: 28/yo F s/p 6 weeks ago with hypertensive urgency 1 dose of hydralazine and 1 dose mgso4 received in the ED Blood pressure controlled at this time Pain medications (Iv tylenol were administered) no need for ICU Pt will be admitted to the floor and monitored on telemetry as per Dr. Josh hern[facility]dez [facility] [place] 5mg PO Dispo: Thank you for this consultative opportunity. Visit type - Emergency Visit Emergency Visit: Yes ED Registration Date: 09/29/19 Care time: The patient presented to the Emergency Department on the above date and was hospitalized for further evaluation of their emergent condition. - New Patient This patient is new to me today: Yes Date on this admission: 09/30/19 - Critical Care Critical Care patient: No ATTENDING PHYSICIAN STATEMENT I saw and evaluated the patient. I reviewed the resident's note and discussed the case with the resident. I agree with the resident's findings and plan as documented. SUBJECTIVE: OBJECTIVE: ASSESSMENT AND PLAN:
--- NOTE | 2019-09-29 19:43 | PDOC ---
*Physical Exam - Vital Signs Last Vital Signs Temp Pulse Resp BP Pulse Ox 97.8 F 70 18 133/88 100 09/29/19 16:45 09/29/19 19:07 09/29/19 19:07 09/29/19 19:07 09/29/19 19:07 Heart Score/ECG Review - History History: Slightly suspicious - Electrocardiogram EKG: Normal - Age Age: </= 45 - Risk Factors Based on the list above the patient has:: 1-2 risk factors - ECG Intrepretation Rhythm: Regular Rhythm Comment:: 09/29/19 19:45 NSR 71 bpm ED Treatment Course - LABORATORY CBC & Chemistry Diagram: 09/29/19 17:05 09/29/19 17:00 - ADDITIONAL ORDERS Additional order review: Laboratory Results 09/29/19 09/29/19 17:00 16:29 Sodium 143 Potassium 3.9 Chloride 107 Carbon Dioxide 30 Anion Gap 6 L BUN 12.8 Creatinine 0.9 Est GFR (CKD-EPI)AfAm 100.14 Est GFR (CKD-EPI)NonAf 86.41 Random Glucose 90 Calcium 8.9 Total Bilirubin 0.2 AST 11 L ALT 19 Alkaline Phosphatase 80 Total Protein 7.1 Albumin 3.4 Urine Color Yellow Urine Appearance Clear Urine pH 8.0 D Ur Specific [place] 1.014 Urine Protein Negative Urine Glucose (UA) Negative Urine Ketones Negative Urine Blood Negative Urine Nitrite Negative Urine Bilirubin Negative Urine Urobilinogen 0.2 Ur Leukocyte Esterase Negative 09/29/19 17:05 RBC 4.36 MCV 89.8 MCHC 33.4 RDW 15.2 MPV 10.0 Neutrophils % 54.7 D Lymphocytes % 35.8 D Monocytes % 5.5 Eosinophils % 3.2 D Basophils % 0.8 - Medications Given in the ED: ED Medications Discontinued Medications Generic Name Dose Route Start Last Admin Trade Name Freq PRN Reason Stop Dose Admin Hydralazine HCl 10 mg 09/29/19 17:50 09/29/19 18:50 Apresoline Injection - IVPUSH 09/29/19 17:51 Not Given ONCE ONE Sodium Chloride 1,000 mls @ 1,000 mls/hr 09/29/19 17:30 09/29/19 17:35 Normal Saline - IV 09/29/19 18:29 1,000 mls/hr ASDIR STA Administration Magnesium Sulfate 6 gm 09/29/19 17:31 09/29/19 18:00 Magnesium Sulfate IVPB 09/29/19 17:32 6 gm ONCE ONE Administration Metoclopramide HCl 10 mg 09/29/19 18:47 09/29/19 19:19 Reglan Injection - IVPB 09/29/19 18:48 10 mg ONCE ONE Administration Medical Decision Making - Medical Decision Making 09/29/19 19:42 b/p 132/80. magnesium drip discontinued. spoke to ICU resident patient downgraded to tele 09/29/19 19:43 Discharge - Discharge Information Problems reviewed: Yes Clinical Impression/Diagnosis: Elevated blood pressure reading Headache Qualifiers: Headache type: unspecified Headache chronicity pattern: acute headache Intractability: not intractable Qualified Code(s): R51 - Headache Condition: Fair - Admission Yes - Follow up/Referral - Patient Discharge Instructions - Post Discharge Activity
[2019-09-29 20:43] LABS: N-TERMINAL BNP 119.2 pg/ml (5-125)
[2019-09-29] MEDS ORDERED: MUPIROCIN 2% TOPICAL OINTMENT FOR DECOLONIZATION NS SCH (22:00)
[2019-09-29] MEDS ORDERED: CHLORHEXIDINE GLUCONATE 4% CLEANSER FOR DECOLONIZATION TP SCH (22:00)
[2019-09-29] MEDS ORDERED: HEPARIN NA (PORCINE) 5,000 UNITS/ML 1ML VIAL ONE (22:44)
[2019-09-29] MEDS: HEPARIN NA (PORCINE) 5,000 UNITS/ML 1ML VIAL SQ SCH (22:50)
[2019-09-30] MEDS ORDERED: ACETAMINOPHEN 325 MG TABLET (FP) ONE (05:48)
[2019-09-30 07:13] LABS: BASO % 0.6 % (0-2.0); EOS % 2.9 % (0-4.5); HEMATOCRIT 36.7 % (32.4-45.2); HEMOGLOBIN 12.2 GM/dL (10.7-15.3); LYMPH % 34.1 % (8-40); MCH 30.1 pg (25.7-33.7); MCHC 33.3 g/dl (32.0-36.0); MEAN CELL VOLUME 90.3 fl (80-96); MEAN PLT VOLUME 10.7 fl (7.5-11.1); MONO % 5.5 % (3.8-10.2); NEUT % 56.9 % (42.8-82.8); PLATELET COUNT 171 K/MM3 (134-434); RBC 4.07 M/mm3 (3.60-5.2); RDW 14.9 % (11.6-15.6); WHITE BLOOD COUNT 4.1 K/mm3 (4.0-10.0)
[2019-09-30 07:27] LABS: INR 1.03 (0.83-1.09); PROTHROMBIN TIME (PATIENT) 12.1 SEC (9.7-13.0)
[2019-09-30 07:55] LABS: ALBUMIN 3.1 g/dl (3.4-5.0); BILIRUBIN,TOTAL 0.3 mg/dL (0.2-1); BLOOD UREA NITROGEN 10.1 mg/dL (7-18); CALCIUM 8.4 mg/dL (8.5-10.1); CREATININE 0.8 mg/dL (0.55-1.3); MAGNESIUM 2.8 mg/dL (1.8-2.4); PHOSPHOROUS 3.3 mg/dL (2.5-4.9); TOT PROT 6.4 g/dl (6.4-8.2)
--- NOTE | 2019-09-30 09:45 | EKG ---
Test Reason : Blood Pressure : / mmHG Vent. Rate : 071 BPM Atrial Rate : 071 BPM P-R Int : 186 ms QRS Dur : 092 ms QT Int : 420 ms P-R-T Axes : 072 020 020 degrees QTc Int : 456 ms NORMAL SINUS RHYTHM WITH SINUS ARRHYTHMIA NORMAL ECG WHEN COMPARED WITH ECG OF 29-OCT-2010 19:15, QT HAS LENGTHENED Confirmed by MD Mendoza, Catalino ([id number]) on 09/30/2019 9:44:52 AM Referred By: Confirmed By:Catalino Donaldson MD
[2019-09-30] MEDS ORDERED: amLODIPine BESYLATE 5 MG TABLET (FP) PO SCH (10:00)
[2019-09-30] MEDS ORDERED: amLODIPine BESYLATE 5 MG TABLET (FP) ONE (10:25)
[2019-09-30] MEDS ORDERED: HEPARIN NA (PORCINE) 5,000 UNITS/ML 1ML VIAL ONE (10:25)
[2019-09-30] MEDS: HEPARIN NA (PORCINE) 5,000 UNITS/ML 1ML VIAL SQ SCH (10:31)
--- NOTE | 2019-09-30 12:29 | EKG ---
Test Reason : Blood Pressure : / mmHG Vent. Rate : 049 BPM Atrial Rate : 049 BPM P-R Int : 174 ms QRS Dur : 088 ms QT Int : 480 ms P-R-T Axes : 030 034 015 degrees QTc Int : 433 ms SINUS BRADYCARDIA ABNORMAL ECG WHEN COMPARED WITH ECG OF 29-SEP-2019 19:22, NO SIGNIFICANT CHANGE WAS FOUND Confirmed by MD Mervin, Quinn ([id number]) on 09/30/2019 12:29:39 PM Referred By: Grecia JOHNSON Confirmed By:Quinn Jeffries MD
[2019-09-30 14:34] VITALS: TEMP 97.9
--- NOTE | 2019-09-30 15:51 | DS ---
Physical Examination Vital Signs: Vital Signs Temperature 97.9 F 09/30/19 14:00 Pulse Rate 65 09/30/19 14:00 Respiratory Rate 18 09/30/19 14:00 Blood Pressure 129/79 09/30/19 14:00 O2 Sat by Pulse Oximetry (%) 100 09/30/19 14:00 Constitutional: Yes: No Distress HENT: Yes: Atraumatic Neck: Yes: Supple Cardiovascular: Yes: Regular Rate and Rhythm Respiratory: Yes: CTA Bilaterally Gastrointestinal: Yes: Normal Bowel Sounds Extremities: Yes: WNL Neurological: Yes: Alert, Oriented Labs: CBC, BMP 09/30/19 06:10 09/30/19 06:10 Discharge Summary Problems reviewed: Yes Reason For Visit: HYPERTENSIVE EMERGENCY Current Active Problems Elevated blood pressure reading (Acute) Headache (Acute) Condition: Stable - Instructions Diet, Activity, Other Instructions: see your doctor 2-3 days monitor bp daily Referrals: Benito Pitts MD [Primary Care Provider] - Ronald Isaac MD [Staff Physician] - Disposition: HOME - Home Medications Comprehensive Discharge Medication List: Ambulatory Orders Amlodipine Besylate [Norvasc -] 5 mg PO DAILY #30 tablet 09/30/19 dc home fu pmd /cardiology 2-3 days for bp
--- NOTE | 2019-09-30 17:11 | CON.CARD ---
Consult Consult Specialty:: Cardiology Referred by:: Dr. Moreno Reason for Consultation:: Cardiac evaluation - History of Present Illness Chief Complaint: Hypertensive urgency History of Present Illness: Patient is a 28 year old female with no significant PMH except recent C section (uneventful without history of pre-eclampsia) now admitted to ED with elevated BP. She complained of headache for past 2 days. She denies chest pain, shortness of breath or palpitations. She denies paroxysmal nocturnal dyspnea or orthopnea. She denies fever or chills. She denies nausea, vomiting, diarrhea or abdominal pain. She denies dizziness at this time. She denies seizure or syncope. - Past Surgical History Past Surgical History: Yes: - Alcohol/Substance Use Hx Alcohol Use: No History of Substance Use: reports: None - Smoking History Smoking history: Never smoked Have you smoked in the past 12 months: No Aproximately how many cigarettes per day: 0 - Social History ADL: Independent History of Recent Travel: No Home Medications - Allergies Allergies/Adverse Reactions: Allergies Allergy/AdvReac Type Severity Reaction Status Date / Time No Known Allergies Allergy Verified 09/29/19 17:22 - Home Medications Home Medications: Ambulatory Orders Amlodipine Besylate [Norvasc -] 5 mg PO DAILY #30 tablet 09/30/19 Family Medical History Family History: Denies Review of Systems - Review of Systems Constitutional: denies: Chills, Fever Cardiovascular: denies: Chest Pain, Palpitations, Shortness of Breath Respiratory: denies: Cough, Hemoptysis, Orthopnea, PND, SOB, SOB on Exertion Gastrointestinal: denies: Abdominal Pain, Constipation, Diarrhea, Melena, Nausea , Rectal Bleeding, Vomiting Genitourinary: denies: Dysuria, Hematuria Musculoskeletal: denies: Back Pain, Joint Pain Neurological: denies: Dizziness, Headache, Seizure, Syncope Vital Signs: Vital Signs Temperature 97.9 F 09/30/19 14:00 Pulse Rate 65 09/30/19 14:00 Respiratory Rate 18 09/30/19 14:00 Blood Pressure 129/79 09/30/19 14:00 O2 Sat by Pulse Oximetry (%) 100 09/30/19 14:00 Eyes: Yes: PERRL HENT: Yes: Atraumatic Neck: Yes: Supple Respiratory: Yes: CTA Bilaterally Gastrointestinal: Yes: Normal Bowel Sounds, Soft. No: Tenderness Cardiovascular: Yes: Regular Rate and Rhythm JVD: No Carotid Bruit: No PMI: Non-Displaced Heart Sounds: Yes: S1, S2. No: Gallop Murmur: No: Systolic Murmur Edema: No - Other Data Labs, Other Data: CBC, BMP 09/30/19 06:10 09/30/19 06:10 INR, PTT INR 1.03 (0.83-1.09) 09/30/19 06:10 Troponin, BNP 09/29/19 17:00 Troponin I < 0.02 B-Natriuretic Peptide 119.2 Laboratory Results - last 24 hr 09/29/19 09/29/19 09/30/19 17:00 17:05 06:10 WBC 3.9 L 4.1 RBC 4.36 4.07 Hgb 13.1 12.2 Hct 39.2 D 36.7 MCV 89.8 90.3 MCH 30.0 30.1 MCHC 33.4 33.3 RDW 15.2 14.9 Plt Count 178 171 MPV 10.0 10.7 Absolute Neuts (auto) 2.1 2.3 Neutrophils % 54.7 D 56.9 Lymphocytes % 35.8 D 34.1 Monocytes % 5.5 5.5 Eosinophils % 3.2 D 2.9 Basophils % 0.8 0.6 Nucleated RBC % 0 0 PT with INR INR Sodium 143 Potassium 3.9 Chloride 107 Carbon Dioxide 30 Anion Gap 6 L BUN 12.8 Creatinine 0.9 Est GFR (CKD-EPI)AfAm 100.14 Est GFR (CKD-EPI)NonAf 86.41 Random Glucose 90 Calcium 8.9 Phosphorus Magnesium Total Bilirubin 0.2 AST 11 L ALT 19 Alkaline Phosphatase 80 Creatine Kinase 136 Troponin I < 0.02 B-Natriuretic Peptide 119.2 Total Protein 7.1 Albumin 3.4 TSH 09/30/19 09/30/19 06:10 06:10 WBC RBC Hgb Hct MCV MCH MCHC RDW Plt Count MPV Absolute Neuts (auto) Neutrophils % Lymphocytes % Monocytes % Eosinophils % Basophils % Nucleated RBC % PT with INR 12.10 INR 1.03 Sodium 143 Potassium 4.0 Chloride 109 H Carbon Dioxide 28 Anion Gap 6 L BUN 10.1 Creatinine 0.8 Est GFR (CKD-EPI)AfAm 115.47 Est GFR (CKD-EPI)NonAf 99.63 Random Glucose 80 Calcium 8.4 L Phosphorus 3.3 Magnesium 2.8 H Total Bilirubin 0.3 AST 10 L ALT 17 Alkaline Phosphatase 71 Creatine Kinase Troponin I B-Natriuretic Peptide Total Protein 6.4 Albumin 3.1 L TSH 2.27 Sinus bradycardia, no ST-T abnormality Imaging - Results Chest X-ray: Report Reviewed (Unremarkable) EKG: Report Reviewed Problem List - Problems (1) Elevated blood pressure reading Code(s): R03.0 - ELEVATED BLOOD-PRESSURE READING, W/O DIAGNOSIS OF HTN (2) Headache Code(s): R51 - HEADACHE Qualifiers: Headache type: unspecified Headache chronicity pattern: acute headache Intractability: not intractable Qualified Code(s): R51 - Headache (3) S/P repeat low transverse Code(s): Z98.891 - HISTORY OF UTERINE SCAR FROM PREVIOUS SURGERY Assessment/Plan 1. Hypertensive urgency - improved 2. Post with no evidence of pre-eclampsia PLAN: 1. May continue Amlodipine 5 mg QD as patient is not breasfeading. Systolic BP has come down to 120's. No additional antihypertensives are needed at the moment 2. She may be discharged home and she was advised to follow up in our office. Echocardiography can be done as outpatient. Further plans are to follow Harlan Segura MD
[2019-09-30 17:16] VITALS: BP 134/72; PULSE 64
== END 2019-09-30 17:00 | disposition home or self-care (01) | DRG 561 ==
LOC: JER 15:55 → JERBED 18:17
PROVIDERS: ADMIT Internal Medicine; ATTEND Internal Medicine
DX: O16.5 Unspecified maternal hypertension, complicating the puerperium (principal); Z98.891 History of uterine scar from previous surgery; I16.1 Hypertensive emergency; R51 Headache
CPT/HCPCS: 36415; 71046-TC-FY; 80053; 81003; 82550; 83735; 83880; 84100; 84443; 84484; 85025; 85610; 87086; 93005; 93010; 99285-25; J1644; J7030

== ENCOUNTER → 2021-07-26 | Emergency (ER) | payer OTHER ==
[~2021-07-26] MED LIST: IBUPROFEN 600 MG TABLET (FP) PO ONE
[2021-07-26 17:50] VITALS: BP 115/76; PULSE 85; TEMP 98.2; BMI 27.4
== END | disposition home or self-care (01) ==
LOC: JERFT 17:20
DX: S16.1XXA Strain of muscle, fascia and tendon at neck level, initial encounter (principal); S46.911A Strain of unspecified muscle, fascia and tendon at shoulder and upper arm level, right arm, initial encounter
CPT/HCPCS: 99283-25

== ENCOUNTER 2024-04-28 08:10 | Inpatient (IN) | payer OTHER ==
[2024-04-28] MEDS: ELECTROLYTE-148 SOLN 1,000 ML IV ONE (09:00)
[2024-04-28] MEDS: CITRIC ACID/SODIUM CITRATE 30 ML UNIT-DOSE CUP PO ONE (09:00)
[2024-04-28 09:43] VITALS: BMI 38.7
[2024-04-28] MEDS: ELECTROLYTE-148 SOLN 1,000 ML IV SCH ×2 (10:30→17:21)
[2024-04-28] MEDS ORDERED: morphine SULFATE/PF 1 MG/2 ML (2cc Syringe - QUVA) ONE (10:34)
[2024-04-28] MEDS ORDERED: ceFAZolin SODIUM 1 GM VIAL ONE (10:35)
[2024-04-28] MEDS ORDERED: SUCCINYLCHOLINE CHLORIDE 200 MG/10 ML SYRINGE ONE (10:35)
[2024-04-28] MEDS ORDERED: ONDANSETRON 4 MG/2 ML VIAL ONE (10:35)
[2024-04-28] MEDS ORDERED: PROPOFOL 20 ML ONE (10:35)
[2024-04-28] MEDS ORDERED: OXYTOCIN 10 UNITS/ML VIAL ONE (11:30)
[2024-04-28] MEDS ORDERED: OXYTOCIN 20 UNITS in 0.9% NS 20 UNIT/1,000 ML INFUS.BAG IV ONE (12:33)
[2024-04-28 12:59] LABS: CORD PCO2 59.3 mmHg (30-78)
[2024-04-28 13:05] LABS: CORD BASE EXCESS -1.1 mmol/L (0-2); CORD HCO3 25.2 mmHg (20-29); CORD PCO2 48.2 mmHg (30-78); CORD pH 7.337 (7.14-7.44)
[2024-04-28] MEDS ORDERED: ACETAMINOPHEN 325 MG TABLET (FP) PO PRN (13:48)
[2024-04-28] MEDS ORDERED: ONDANSETRON 4 MG/2 ML VIAL IVPUSH PRN (13:48)
[2024-04-28] MEDS: morphine SULFATE/PF 1 MG/2 ML (2cc Syringe - QUVA) EP ONE (17:20)
[2024-04-28] MEDS: IBUPROFEN 600 MG TABLET (FP) PO PRN (19:58)
[2024-04-29 09:27] VITALS: RESP 18
[2024-04-29] MEDS: ENOXAPARIN NA (PORCINE) 40 MG/0.4 ML DISP.SYRIN SQ SCH (09:28)
[2024-04-29 13:32] LABS: BASO % 0.1 % (0-2.0); EOS % 0.8 % (0-4.5); HEMATOCRIT 34.8 % (32.4-45.2); HEMOGLOBIN 11.3 GM/dL (10.7-15.3); LYMPH % 8.9 % (8-40); MCHC 32.5 g/dl (32.0-36.0); MEAN CELL VOLUME 92.2 fl (80-96); MEAN PLT VOLUME 10.1 fl (7.5-11.1); MONO % 4.7 % (3.8-10.2); NEUT % 85.5 % (42.8-82.8); PLATELET COUNT 156 10^3/uL (134-434); RBC 3.78 M/mm3 (3.60-5.2); RDW 15.6 % (11.6-15.6)
[2024-05-01 01:20] VITALS: TEMP 98
[2024-05-01 09:03] VITALS: BP 118/77; PULSE 77
== END 2024-05-01 14:38 | disposition home or self-care (01) | DRG 540 ==
LOC: JLDR 08:10 → J3W 14:40
PROVIDERS: ADMIT Obstetrics & Gynecology; ATTEND Obstetrics & Gynecology
PROC: 10D00Z1 Extraction of Products of Conception, Low, Open Approach (ICD-10-PCS; principal; 2024-04-28)
DX: O34.219 Maternal care for unspecified type scar from previous cesarean delivery (principal); O69.81X0 Labor and delivery complicated by cord around neck, without compression, not applicable or unspecified; Z3A.37 37 weeks gestation of pregnancy; Z37.0 Single live birth
CPT/HCPCS: 36415; 36600; 59409; 82803; 85025; 86850; 86900; 86901; 88307-TC; 94010